=== PATIENT | male | born 2000 | race Two or more races ===

== ENCOUNTER 2020-03-02 21:26 | Emergency (ER) | payer MEDICAID ==
[~2020-03-02] VITALS: Ht 190.5 cm; Wt 122.5 kg
[2020-03-02 21:30] VITALS: BP 134/89
[2020-03-02] MEDS ORDERED: Aspirin Baby 81mg ORAL ONE (22:00)
--- NOTE | 2020-03-02 22:15 | Emergency Room Report ---
History of Present Illness General Chief Complaint: Chest Pain Source: Patient Present Illness HPI 19-year-old male with no past medical history. He presents with chief complaint of chest pain. He said that he snorted a lot of cocaine yesterday. Today all day has been having tightness in his left chest area. He said it felt like the muscle was squeezing and spasming. Lasting only a few seconds. No nausea no vomiting. No radiation of the pain. No fever chills more no exertional component. Denies any other complaint. Does have some slight shortness of breath. No other symptoms. Nothing made it better. Nothing made it worse. Allergies: Coded Allergies: No Known Allergies (Unverified , 03/02/20) COVID-19 Screening Contact w/high risk pt: No Experienced COVID-19 symptoms?: No COVID-19 Testing performed TECHNOLOGIST DEVELOPMENT: No Patient History Past Medical History: see triage record, old chart reviewed Past Surgical History: none Pertinent Family History: none Social History: Reports: drug use Immunizations: other Reviewed Nursing Documentation: PMH: Agreed; PSxH: Agreed Nursing Documentation-PMH Past Medical History: No Stated History Review of Systems Eye: Denies: eye pain, blurred vision ENT: Denies: ear pain, nose congestion, throat swelling Respiratory: Denies: cough, shortness of breath Cardiovascular: Reports: chest pain; Denies: palpitations Gastrointestinal: Denies: abdominal pain, diarrhea, nausea, vomiting Musculoskeletal: Denies: back pain, joint pain Skin: Denies: rash Neurological: Denies: headache, numbness Endocrine: Denies: increased thirst, increased urine Hematologic/Lymphatic: Denies: easy bruising All Other Systems: negative except mentioned in HPI Physical Exam Vital Signs Date Time Temp Pulse Resp B/P (MAP) Pulse Ox O2 Delivery O2 Flow Rate FiO2 03/02/20 21:36 98.2 62 18 110/73 (85) 95 Room Air Vitals normal Sp02 EP Interpretation: reviewed, normal General Appearance: well appearing, no apparent distress, alert Head: normocephalic, atraumatic Eyes: bilateral eye PERRL, bilateral eye EOMI ENT: hearing grossly normal, normal pharynx Neck: full range of motion, supple, no meningismus Respiratory: chest non-tender, lungs clear, normal breath sounds Cardiovascular #1: regular rate, rhythm, no murmur Gastrointestinal: normal bowel sounds, non tender, no mass, no organomegaly, no bruit, non-distended Musculoskeletal: back normal, normal range of motion, gait/station normal Psychiatric: mood/affect normal Medical Decision Making Diagnostic Impression: Primary Impression: Chest pain Qualified Codes: R07.9 - Chest pain, unspecified Additional Impression: Cocaine abuse ER Course Presents with atypical chest pain. EKG is normal. Troponin is negative. He describes his pain is more of a muscle spasm. No evidence of ACS, PE, dissection to name a few. Will discharge home. EKG Diagnostic Results Rate: normal, bradycardiac Rhythm: NSR ST Segments: no acute changes ASA given to the pt in ED: Yes Rhythm Strip Diag. Results EP Interpretation: yes Rate: 49 Rhythm: NSR, no PVC's, no ectopy Last Vital Signs Date Time Temp Pulse Resp B/P (MAP) Pulse Ox O2 Delivery O2 Flow Rate FiO2 03/02/20 21:36 98.2 62 18 110/73 (85) 95 Room Air Status: improved Disposition: HOME, SELF-CARE Additional Instructions: Stop abusing drugs. Follow-up with your doctor in 7 days. Return if worse. Layton Jiang MD Mar 02, 2020 22:15
[2020-03-02 23:10] VITALS: BP 112/75
== END 2020-03-02 23:10 | disposition home or self-care (01) ==
LOC: EMR 22:23
DX: R07.9 Chest pain, unspecified (principal); F14.10 Cocaine abuse, uncomplicated; R00.1 Bradycardia, unspecified
CPT/HCPCS: 84484; 93005; 96360; J7030; Z7502; 99284

== ENCOUNTER 2020-05-08 18:29 | Emergency (ER) | payer MEDICAID ==
[~2020-05-08] VITALS: Ht 190.5 cm; Wt 122.5 kg
[2020-05-08 18:45] VITALS: BP 132/84
--- NOTE | 2020-05-08 18:48 | NUR ---
ED Nurse Note: Patient walked in to ER from home and walked in due to loss of smell x 3 days. Pt had runny nose and sore throat x 1 day. Denies any other symptoms. Patient AAO x4, all VSS at this time
--- NOTE | 2020-05-08 19:14 | NUR ---
ED Nurse Note: Report received from JAMES CARROLL. prepress technician at bedside
--- NOTE | 2020-05-08 19:33 | Emergency Room Report ---
History of Present Illness General Chief Complaint: General Complaint Source: Patient Present Illness HPI 19-year-old male with no significant past medical history here complaining of 3 days of sudden loss of smell and congestion. Denies any chest pain, cough, shortness of breath, fever or chills. Reports that he might have come in contact with someone who is positive for Covid. Sitting comfortably with stable vital signs. Denies all past medical history. Denies tobacco smoke, drug use, alcohol intake. Has not taken medication for symptom relief. Denies diarrhea. Allergies: Coded Allergies: No Known Allergies (Unverified , 03/02/20) COVID-19 Screening Contact w/high risk pt: No Experienced COVID-19 symptoms?: Yes COVID-19 Testing performed CABLE TESTER: No COVID-19 Screening: Negative COVID-19 Patient History Past Medical History: see triage record Past Surgical History: none Pertinent Family History: none Immunizations: UTD Reviewed Nursing Documentation: PMH: Agreed; PSxH: Agreed Nursing Documentation-PMH Past Medical History: No Stated History Review of Systems All Other Systems: negative except mentioned in HPI Physical Exam Vital Signs Date Time Temp Pulse Resp B/P (MAP) Pulse Ox O2 Delivery O2 Flow Rate FiO2 05/08/20 18:35 98.2 71 20 132/84 (100) 96 Room Air Sp02 EP Interpretation: reviewed, normal General Appearance: no apparent distress, alert, GCS 15, non-toxic Head: normocephalic, atraumatic Eyes: bilateral eye normal inspection, bilateral eye PERRL ENT: hearing grossly normal, normal pharynx, no angioedema, normal voice Neck: full range of motion, supple/symm/no masses Respiratory: chest non-tender, lungs clear, normal breath sounds, speaking full sentences Cardiovascular #1: regular rate, rhythm, no edema Cardiovascular #2: 2+ carotid (R), 2+ carotid (L), 2+ radial (R), 2+ radial (L), 2+ dorsalis pedis (R), 2+ dorsalis pedis (L) Gastrointestinal: normal inspection Rectal: deferred Genitourinary: no CVA tenderness Musculoskeletal: back normal Neurologic: alert, motor strength/tone normal, oriented x3, sensory intact, responsive, speech normal Psychiatric: judgement/insight normal, memory normal, mood/affect normal, no suicidal/homicidal ideation Skin: no rash Lymphatic: no adenopathy Medical Decision Making KEV Attestation All my diagnosis and treatment plans were reviewed ad discussed with my supervising physician Dr. Alston Diagnostic Impression: Primary Impression: Loss of smell Additional Impression: URI (upper respiratory infection) ER Course 19-year-old male with no significant past medical history here complaining of 3 days of sudden loss of smell and congestion. Denies any chest pain, cough, shortness of breath, fever or chills. Reports that he might have come in contact with someone who is positive for Covid. Sitting comfortably with stable vital signs. Denies all past medical history. Denies tobacco smoke, drug use, alcohol intake. Has not taken medication for symptom relief. Denies diarrhea. Ddx considered but are not limited to: strep pharyngitis, URI, tonsillitis, peritonsillar abscess, influneza Vital signs: are WNL, pt. is afebrile H&PE are most consistent with: Possible COVID-19, URI ORDERS: Azithromycin, prednisone for symptom relief ED INTERVENTIONS: None required at this time. Patient take medication as directed, follow-up with primary care provider, self isolate for 14 days, get tested for Covid as symptoms are most likely food service representative of Covid. If worsening symptoms return to emergency room DISCHARGE: At this time pt. is stable for d/c to home. Will provide printed patient care instructions, and any necessary prescriptions. Care plan and follow up instructions have been discussed with the patient prior to discharge. Chest X-Ray Diagnostic Results Chest X-Ray Diagnostic Results : Chest X-Ray Ordered: Yes # of Views/Limited/Complete: 1 View Indication: Other EP Interpretation: Yes KEV Xray: Interpretation reviewed, by supervising MD, and agrees with findings. Interpretation: no consolidation, no effusion, no pneumothorax Impression: No acute disease Electronically Signed by: Corrie Horton PA-C Last Vital Signs Date Time Temp Pulse Resp B/P (MAP) Pulse Ox O2 Delivery O2 Flow Rate FiO2 05/08/20 18:45 98.2 20 132/84 96 Room Air 05/08/20 18:45 71 Disposition: HOME, SELF-CARE Condition: Stable Scripts Prednisone* (PREDNISONE*) 20 Mg Tablet 40 MG ORAL DAILY for 5 Days, #10 TAB Prov: Corrie Tate 05/08/20 Azithromycin* (ZITHROMAX*) 250 Mg Tablet 250 MG ORAL DAILY, #6 TAB 0 Refills Take two tables once daily for 1 day, then one tablet once daily for 4 days. Prov: Corrie Tate 05/08/20 Patient Instructions: Upper Respiratory Infection, Adult, [id number] Additional Instructions: Take medication as directed, follow primary care provider, if worsening symptom return to the emergency room also get tested for Covid and self isolate for 2 weeks. Corrie Tate May 08, 2020 19:33
[2020-05-08] MEDS ORDERED: ZITHROMAX250 MG ORAL (19:34)
[2020-05-08] MEDS ORDERED: PREDNISONE20 MG ORAL (19:34)
--- NOTE | 2020-05-08 20:00 | NUR ---
ER DISCHARGE NOTE: Patient is cleared to be discharged per ERMD, pt is aox4, on room air, with stable vital signs. pt was given dc and prescription instructions, pt was able to verbalize understanding, pt id band removed. pt is able to ambulate with steady gait. pt took all belongings.
[2020-05-08 20:49] VITALS: BP 132/84
--- NOTE | 2020-05-09 15:20 | Diagnostic Imaging Report ---
Indication: Shortness of breath Technique: One view of the chest Comparison: none Findings: Lungs and pleural spaces are clear. Heart size is normal. Impression: No acute process
== END 2020-05-08 20:00 | disposition home or self-care (01) ==
LOC: EMR 18:45
DX: J06.9 Acute upper respiratory infection, unspecified (principal)
CPT/HCPCS: 71045; Z7502; 99283